=== PATIENT | male | born 1990 | race African-American/Black ===

== ENCOUNTER 2020-09-14 08:25 | Emergency (ER) | payer BC, SELFPAY ==
[2020-09-14 08:45] VITALS: BP 115/68; PULSE 62; RESP 16; TEMP 36.6; O2SAT 100
[2020-09-14 09:32] VITALS: BP 132/73; PULSE 59; RESP 16; O2SAT 100
--- NOTE | 2020-09-14 09:37 | ED.EXTPRO ---
HPI - Extremity Problem General Chief complaint: Extremity Problem,Nontraumatic Stated complaint: arm pain Time Seen by Provider: 09/14/20 09:30 Source: patient Mode of arrival: ambulatory Limitations: no limitations History of Present Illness HPI Narrative: Patient presents with chief complaint of right arm pain and spasming that has been occurring over the past week. Patient denies known mechanism of injury besides he throws a football with that arm. Patient reports pain with moving the right arm. He states he has been using muscle rub which helped some last night. He denies any other symptoms or prior injuries. Related Data Allergies Allergy/AdvReac Type Severity Reaction Status Date / Time No Known Allergies Allergy Mild Verified 09/14/20 09:35 Review of Systems Review of Systems: Narrative: CONSTITUTIONAL: Denies fever, chills, or sweats. EYES: Denies visual changes, redness, or discharge. ENT: Denies rhinorrhea, congestion, sore throat, or otalgia. CARDIOVASCULAR: Denies chest pain, palpitations, or edema. RESPIRATORY: Denies cough or dyspnea. GASTROINTESTINAL: Denies abdominal pain, nausea, vomiting, or diarrhea. GENITOURINARY: Denies dysuria or hematuria. SKIN: Denies rash or itching. MUSCULOSKELETAL: Reports muscle pain Denies back pain or joint pain NEUROLOGIC: Denies headache, numbness, dizziness, or weakness. PSYCHIATRIC: Denies anxiety or depression. Exam Narrative: Exam Narrative: GENERAL: Well-appearing, well-nourished. HEAD: Normocephalic, atraumatic. EYES: PERRLA and EOMI. CHEST: Clear to auscultation. No respiratory distress. No wheezes rales or rhonchi HEART: Regular rate and rhythm. Normal peripheral pulses. ABDOMEN: Soft, nontender, nondistended, normal active bowel sounds. No bruises noted. EXTREMITIES: No bony tenderness with palpation of the right shoulder. Tightness and pain with palpation of the biceps. Pain with flexion of the elbow and abduction. No loss of ROM, ecchymosis or erythema. There is no bulging suggesting complete tear of bicep. No edema. SKIN: Warm, dry, no rash. NEURO: No focal deficits. Alert and oriented x3. PSYCH: Normal mood and affect. Course Vital Signs Vital signs: Vital Signs Temperature 97.8 F 09/14/20 08:45 Pulse Rate 62 09/14/20 08:45 Respiratory Rate 16 09/14/20 08:45 Blood Pressure 115/68 09/14/20 08:45 Pulse Oximetry 100 09/14/20 08:45 Temperature 97.8 F 09/14/20 08:45 Pulse Rate 59 L 09/14/20 09:32 Respiratory Rate 16 09/14/20 09:32 Blood Pressure 132/73 09/14/20 09:32 Pulse Oximetry 100 09/14/20 09:32 MDM - Extremity (Nontraumatic) MDM Narrative Medical decision making narrative: Discussed with patient sprain strain protocol. Discussed follow-up with primary care transcription specialist to further investigation into the tendons and ligaments. Patient will be prescribed naproxen and cyclobenzaprine. Patient will be given restriction work noticed. Patient strict to return to the emergency department if he develops any emergent symptoms. No bony tenderness was found so x-ray was not performed. Discharge Plan Discharge Clinical Impression: Sprain, bicep Patient Disposition: Home, Self-Care Condition: Stable Instructions: Antibiotic Form, Sprain (ED), Musculoskeletal Pain (ED) Additional Instructions: Take naproxen and cyclobenzaprine as directed. Do not take cyclobenzaprine if you be driving operate heavy machinery as it can cause drowsiness. Do not take any other NSAIDs with naproxen. You may take Tylenol supplementation if desired. Apply cool compress to areas of swelling discomfort. You may apply warm moist compresses and gentle stretching as well. Follow-up with your primary care or orthopedics for evaluation of these areas, sooner if you have any questions. Return to emergency department if you have any worsening or emergent symptoms. Prescriptions: New naproxen 500 mg tablet 500 mg PO BID P
== END 2020-09-14 10:19 | disposition home or self-care (01) ==
PROVIDERS: Emergency Provider Emergency Medicine
DX: S46.291A Other injury of muscle, fascia and tendon of other parts of biceps, right arm, initial encounter (principal); X58.XXXA Exposure to other specified factors, initial encounter
CPT/HCPCS: 99283

== ENCOUNTER 2020-10-31 12:05 | Emergency (ER) | payer BC, SELFPAY ==
--- NOTE | ~2020-10-31 | US_ITS ---
EXAMINATION: US venous doppler UE RT DATE: 10/31/2020 14:13 INDICATION: Right upper limb swelling TECHNIQUE: Grayscale images without and with compression and Doppler images of the right upper extrem ity veins were obtained. COMPARISON: None. FINDINGS: The right internal jugular vein, subclavian vein, axillary vein, brachial vein, basilic vein, cephali c vein, radial vein, and ulnar vein are patent. IMPRESSION: 1. Patent right upper extremity veins. No evidence of venous thrombosis. Reviewed, dictated and finalized at location A.
[2020-10-31 12:06] VITALS: BP 129/89; PULSE 77; RESP 16; TEMP 36.3; O2SAT 99
--- NOTE | 2020-10-31 12:51 | ED.GENADULT ---
HPI - General Adult General Chief complaint: Extremity Injury, Upper Stated complaint: right arm pain Time Seen by Provider: 10/31/20 12:29 History of Present Illness HPI narrative: Patient is a 30-year-old male who presents to the emergency room with right upper extremity swelling. Patient reports he started having some discomfort about a month ago after throwing football with a family member. She then started getting cramping a couple weeks after his initial discomfort that was like a spasm in his bicep. That pain is since subsided. He continues to try to rest the arm and take anti-inflammatories but he has noticed that it is still enlarged compared to the left side. He also reports that the veins are more distended. He reports if he starts to overuse his right arm he will start getting cramping and throbbing again. Patient has no family members with history of blood clots. No personal history of blood clots. He is not on blood thinners. Denies chest pain/shortness of breath. Related Data Allergies Allergy/AdvReac Type Severity Reaction Status Date / Time No Known Allergies Allergy Mild Verified 10/31/20 12:08 Review of Systems Review of Systems: All systems reviewed & are unremarkable except as noted in HPI and below Constitutional: Constitutional: Denies chills, Denies fever(s) and Denies weakness Cardiovascular: Cardiovascular: Denies chest pain, Denies rapid heart rate and Denies radiating jaw, neck or arm pain Respiratory: Respiratory: Denies cough and Denies dyspnea Musculoskeletal: Musculoskeletal: Denies arthralgias, Denies joint swelling and Reports muscle cramps Comments: RUE swelling PMFSH Past Medical History Medical History (Updated 10/31/20 @ 15:12 by Apolinar Cunningham MD) Healthy adult male Surgical History Surgical History (Updated 10/31/20 @ 12:57 by Apolinar Cunningham MD) H/O hand surgery Right boxers fracture. Social History Social History Gender identity (if verbalized by the patient): Male Exam Narrative: Exam Narrative: GENERAL: Well-appearing, well-nourished, and in no acute distress. HEAD: Normocephalic, atraumatic. CHEST: Clear to auscultation. No respiratory distress. HEART: Regular rate and rhythm. Normal peripheral pulses. EXTREMITIES: Normal range of motion. No edema. Right arm does seem to have some distended veins over the biceps on the right side and circumference appears larger in the right upper extremity compared to the left. No reproducible tenderness. Neurovascular intact. SKIN: Warm, dry, no rash. NEURO: Alert and oriented x3. Course Course Emergency Course: Patient informed of lab and imaging results. Recommend follow-up with PCP as well as continue hydration anti-inflammatories. Patient verbalized understanding. Discharge home. Vital Signs Vital signs: Vital Signs Temperature 97.3 F L 10/31/20 12:06 Pulse Rate 77 10/31/20 12:06 Respiratory Rate 16 10/31/20 12:06 Blood Pressure 129/89 10/31/20 12:06 Pulse Oximetry 99 10/31/20 12:06 Temperature 97.3 F L 10/31/20 12:06 Pulse Rate 77 10/31/20 12:06 Respiratory Rate 16 10/31/20 12:06 Blood Pressure 129/89 10/31/20 12:06 Pulse Oximetry 99 10/31/20 12:06 Medical Decision Making Vital Signs Vital Signs: Vital Signs Temperature 97.3 F L 10/31/20 12:06 Pulse Rate 77 10/31/20 12:06 Respiratory Rate 16 10/31/20 12:06 Blood Pressure 129/89 10/31/20 12:06 Pulse Oximetry 99 10/31/20 12:06 Temperature 97.3 F L 10/31/20 12:06 Pulse Rate 77 10/31/20 12:06 Respiratory Rate 16 10/31/20 12:06 Blood Pressure 129/89 10/31/20 12:06 Pulse Oximetry 99 10/31/20 12:06 Lab Data Result diagrams: 10/31/20 12:50 Labs: Lab Results 10/31/20 10/31/20 Range/Units 12:50 12:50 PT 13.2 (11.1-14.7) Seconds INR 0.9 APTT 24.7 (22.3-36.8) SECONDS Sodium 139 (137-145) mmol/L Potassium 3.8 (3.4-5.0) mmol/L
[2020-10-31 13:07] LABS: Anion Gap 6 mmol/L (8-16); Blood Urea Nitrogen 10 mg/dL (9-20); Calcium 10.1 mg/dL (8.4-10.2); Carbon Dioxide 26 mmol/L (22-30); Chloride 107 mmol/L (98-107); Creatine Kinase 359 U/L (55-170); Estimated CRCL calculation 88 ml/min; Estimated Glomerular Filt Rate > 60; Glucose 109 mg/dL (75-110); INR 0.9; Potassium 3.8 mmol/L (3.4-5.0); Prothrombin Time 13.2 Seconds (11.1-14.7); Sodium 139 mmol/L (137-145)
[2020-10-31 13:08] LABS: Partial Thromboplastin Time 24.7 SECONDS (22.3-36.8)
== END 2020-10-31 15:34 | disposition home or self-care (01) ==
PROVIDERS: Emergency Provider Emergency Medicine
DX: M60.9 Myositis, unspecified (principal)
CPT/HCPCS: 36415; 80048; 82550; 85610; 85730; 93971; 99284

== ENCOUNTER 2024-11-26 14:24 | Emergency (ER) | payer SELFPAY ==
--- NOTE | 2024-11-26 14:30 | ED_ITS ---
HPI - Dental/Oral General Chief complaint: Dental/Oral Stated complaint: Tooth Pain Source: patient and RN notes reviewed Mode of arrival: ambulatory Limitations: no limitations History of Present Illness HPI Narrative: Patient is a 34-year-old male who presents to the [facility] with complaints of right upper dental pain. Patient states that he broke the 2 in May of last year. He has had intermittent pain ever since. He states that he has had an increase in pain over the last few days. He denies trouble swallowing or trismus. Denies recent fevers. States that he does not currently have a dentist . Related Data Allergies Allergy/AdvReac Type Severity Reaction Status Date / Time No Known Allergies Allergy Mild Verified 11/26/24 14:32 Review of Systems Review of Systems: CONSTITUTIONAL: Denies fever, chills, or sweats. EYES: Denies visual changes, redness, or discharge. ENT: Denies otalgia and sore throat. Reports dental pain. CARDIOVASCULAR: Denies chest pain, palpitations, or edema. RESPIRATORY: Denies cough or dyspnea. GASTROINTESTINAL: Denies abdominal pain, nausea, vomiting, or diarrhea. GENITOURINARY: Denies dysuria or hematuria. SKIN: Denies rash or itching. MUSCULOSKELETAL: Denies back pain, joint pain, or myalgia. NEUROLOGIC: Denies headache, numbness, or weakness. Pertinent positives per HPI. PMFSH Past Medical History Medical History Healthy adult male Surgical History Surgical History H/O hand surgery Right boxers fracture. Social History Social History Gender identity (if verbalized by the patient): Male Comments At the time of my signature, I reviewed and agree with the nursing past medical, surgical, social, and family history. There is no relevant family history pertinent to the patient complaint. Exam Narrative: GENERAL: This is a well-nourished, well-developed patient, in no apparent distress. HEAD: normocephalic, atraumatic. EYES: Sclera clear/white. Vision is grossly intact. EARS: External ears normal. Hearing grossly intact. NOSE: External nose normal with no obvious nasal discharge, nares without redness, no rhinorrhea. THROAT: Mucous membranes moist, posterior pharynx clear. MOUTH: Dental tenderness, gingival swelling, dental caries, broken teeth. NECK: Neck supple, non-tender without lymphadenopathy, masses or thyromegaly. CARDIOVASCULAR: Regular rate and rhythm without murmurs, gallops, or rubs. RESPIRATORY: Clear to auscultation. Breath sounds equal bilaterally. No wheezes, rales, or rhonchi. GASTROINTESTINAL: Abdomen soft, non-tender, nondistended. Bowel sounds are active. No hepato-splenomegaly, or palpable masses. No guarding. SKIN: warm, intact with no suspicious lesions or rash, good texture and turgor. NEURO: awake, alert, and oriented to person, place and time. There were no obvious focal neurologic abnormalities. Course Course Level of Care: Express Care Visit Vital Signs Vital signs: Vital Signs Temperature 99.1 F 11/26/24 14:33 Pulse Rate 86 11/26/24 14:33 Respiratory Rate 16 11/26/24 14:33 Blood Pressure 122/86 11/26/24 14:33 Pulse Oximetry 99 11/26/24 14:33 Oxygen Delivery Room Air 11/26/24 14:33 Temperature 99.1 F 11/26/24 14:33 Pulse Rate 86 11/26/24 14:33 Respiratory Rate 16 11/26/24 14:33 Blood Pressure 122/86 11/26/24 14:33 Pulse Oximetry 99 11/26/24 14:33 Oxygen Delivery Room Air 11/26/24 14:33 Reviewed MDM - Dental/Oral MDM Narrative Medical decision making narrative: Take antibiotic until it's gone. Brushing teeth at least twice daily with gentle flossing. Avoid temperature extremes when you eat. Salt gargle to rinse your mouth after every meal You may apply ice to the face to reduce pain/swelling. For pain, you may take: Tylenol 650-1000mg by mouth every 4-6 hours. Do not exceed 4000mg in 24 hours. Advil (Ibuprofen) 600 mg by mouth every 6 hours. Do not exceed 2400mg in 24 hours. Also, recommend regular dental check up one-two times a year to prevent tooth decay and other periodontal disease. Follow-up with the dentist as soon as possible. See the list provided May call Marlin @ [address] [address] hrs: Mon-Mon 8:30-5:[address] [place] [address] [facility] [phone] RICARDO Rubio Differential Diagnosis Differential diagnosis: Likely dental caries, toothache and dental abscess Critical Care Time Critical Care Time Critical Care Time: No Discharge Plan Discharge Clinical Impression: Dental infection Patient Disposition: Home Condition: Stable Instructions: Antibiotic Form, Toothache (ED) Additional Instructions: Take antibiotic until it's gone. Brushing teeth at least twice daily with gentle flossing. Avoid temperature extremes when you eat. Salt gargle to rinse your mouth after every meal You may apply ice to the face to reduce pain/swelling. For pain, you may take: Tylenol 650-1000mg by mouth every 4-6 hours. Do not exceed 4000mg in 24 hours. Advil (Ibuprofen) 600 mg by mouth every 6 hours. Do not exceed 2400mg in 24 hours. Also, recommend regular dental check up one-two times a year to prevent tooth decay and other periodontal disease. Follow-up with the dentist as soon as possible. See the list provided May call Madelinemanuel @ [address] [address] hrs: Mon-Mon 8:30-5:[address] [place] [address] [phone] RICARDO Rubio Patient Language: Togolese Prescriptions: New amoxicillin 500 mg capsule 500 mg PO Q12H 10 Days Qty: 20 0RF naproxen 500 mg tablet 500 mg PO BID PRN (Reason: pain) Qty: 20 0RF lidocaine HCl [Lidocaine Viscous] 2 % solution 1 applic mucous membrane BID PRN (Reason: pain) Qty: 100 0RF Follow-up/Referrals: PHYSICIAN,DOG TRAINER [Primary Care Provider] - Stand Alone Forms: Work/School Release IP Time of Disposition: 14:39
[2024-11-26 14:33] VITALS: BP 122/86; PULSE 86; RESP 16; TEMP 37.3; O2SAT 99
== END 2024-11-26 14:41 | disposition home or self-care (01) ==
PROVIDERS: Emergency Provider Nurse Practitioner
DX: K04.7 Periapical abscess without sinus (principal)
CPT/HCPCS: 99213; G0463